=== PATIENT | male | born 2000 | race Caucasian/White ===

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

== ENCOUNTER 2024-07-14 11:38 | Inpatient (IN) ==
--- NOTE | 2024-07-14 12:16 | Emergency Department Note ---
History of Present Illness General Chief complaint: Abdominal Pain Stated complaint: APPENDIX HURTS, SOB, FEELS LIKE FEVER Time Seen by Provider: 07/14/24 11:47 History of Present Illness Maximum Pain Intensity: 6 Patient is a 24-year-old male with past medical history significant for anxiety and congenital solitary kidney, who presents to the emergency department for evaluation of abdominal pain. Symptoms woke him from sleep around 0500 this morning, roughly 7 hours ago. He states the pain was in the mid lower abdomen. He was nauseous, and did vomit once at that time. He tried have a bowel movement, reports that it was loose. He went back to bed. Woke up 2 hours later with the same pain. It continues to be in the lower abdomen, below the bellybutton but is now more on the right-hand side. Still nauseous, but has not vomited again and was able to tolerate pancakes for breakfast. He states the pain is worse with walking and moving. He currently rates his discomfort a 6/10. No urinary symptoms. Subjectively has had some hot flashes, but no documented fever. He did not take any medication for his symptoms. He is a client server programmer, but does not do any food prep or raw food handling activities. Denies any known sick contacts, denies any unusual food concerns. He did just finished a course of amoxicillin for strep throat a couple days ago. Home Medications Medication Instructions Recorded Confirmed Type inhalat.spacing dev,large mask #1 ea 11/20/18 07/02/24 Rx (Aerochamber Plus Flow-Vu,Large Mask) Allergies Allergy/AdvReac Type Severity Reaction Status Date / Time pollen extracts Allergy Mild Verified 07/14/24 14:50 Past Med/Surg History Problem List (Updated 07/14/24 @ 18:37 by Ava Arnett) Cyst of seminal vesicle (Acute) Acute appendicitis (Acute) Abdominal pain Medical History Polycystic kidney, autosomal recessive Anxiety Congenital absence of left kidney Syncope Surgical History History of circumcision Family History Mother No problems noted. Father Muscular dystrophy Social History Smoking Status: Current every day smoker Tobacco Type: E-cigarettes / Vaping Second Hand Exposure: No; Hx Alcohol Use: Yes Alcohol type: wine Hx Substance Use: Yes (Medical card) Last Used Substance: Days (ago) Preferred Language: Spanish Communication Ability: Effective Manager Sales Support Required: No Beliefs That Will Affect Care: None Current Living Situation: Parent Current Living Situation Comment: parents Feels Safe at Home: Yes Childhood Exposure to Second-Hand Smoke: No Dental Care, Regularly: Yes Assistive Devices: None Review of Systems A total of 10 systems reviewed and were otherwise negative Physical Exam Vital Signs Vital Signs - 24 hr 07/14/24 11:42 07/14/24 12:42 07/14/24 12:42 Temperature 36.7 C Temperature Source Temporal Artery Scan Pulse Rate 116 H 83 83 Respiratory Rate 18 17 Respiratory Effort / Characteristics Non-Labored Spontaneous Respiratory Depth Normal Respiratory Pattern Regular Blood Pressure 127/82 Blood Pressure Mean 97 Pulse Oximetry 99 Oxygen Delivery Method Room Air Sepsis Recent Fever Within 48 Hours No Sepsis New/Unexplained Change in Mental Status N/A Sepsis Action Taken by Nursing No Action Required 07/14/24 12:54 07/14/24 12:57 07/14/24 13:00 Temperature Temperature Source Pulse Rate 85 89 Respiratory Rate 14 19 Respiratory Effort / Characteristics Respiratory Depth Respiratory Pattern Blood Pressure 115/80 Blood Pressure Mean 87 Pulse Oximetry Oxygen Delivery Method Sepsis Recent Fever Within 48 Hours Sepsis New/Unexplained Change in Mental Status Sepsis Action Taken by Nursing 07/14/24 13:00 07/14/24 13:03 07/14/24 13:12 Temperature Temperature Source Pulse Rate 86 91 H Respiratory Rate 18 21 Respiratory Effort / Characteristics Respiratory Depth Respiratory Pattern Blood Pressure 115/80 Blood Pressure Mean 87 Pulse Oximetry Oxygen Delivery Method Sepsis Recent Fever Within 48 Hours Sepsis New/Unexplained Change in Mental Status Sepsis Action Taken by Nursing 07/14/24 13:27 07/14/24 13:30 07/14/24 13:30 Temperature Temperature Source Pulse Rate 89 Respiratory Rate 18 Respiratory Effort / Characteristics Respiratory Depth Respiratory Pattern Blood Pressure 106/76 106/76 Blood Pressure Mean 89 89 Pulse Oximetry Oxygen Delivery Method Sepsis Recent Fever Within 48 Hours Sepsis New/Unexplained Change in Mental Status Sepsis Action Taken by Nursing 07/14/24 14:06 07/14/24 14:18 07/14/24 14:30 Temperature Temperature Source Pulse Rate 83 76 84 Respiratory Rate 23 19 22 Respiratory Effort / Characteristics Respiratory Depth Respiratory Pattern Blood Pressure Blood Pressure Mean Pulse Oximetry Oxygen Delivery Method Sepsis Recent Fever Within 48 Hours Sepsis New/Unexplained Change in Mental Status Sepsis Action Taken by Nursing 07/14/24 14:51 Temperature Temperature Source Pulse Rate 86 Respiratory Rate 23 Respiratory Effort / Characteristics Respiratory Depth Respiratory Pattern Blood Pressure Blood Pressure Mean Pulse Oximetry Oxygen Delivery Method Sepsis Recent Fever Within 48 Hours Sepsis New/Unexplained Change in Mental Status Sepsis Action Taken by Nursing CONSTITUTIONAL: Well-appearing 24-year-old male in no acute distress. EYES: Pupils equal, round, reactive to light and accommodation. EOMs intact without nystagmus. Sclera are anicteric. ENT: Tympanic membranes intact, with normal landmarks. External canals are clear. Oral and nasopharynx are clear. Mucous membranes are moist, no lesions, tongue and gums appear normal. CARDIOVASCULAR: Regular rate and rhythm. Peripheral pulses easy to palpable. RESPIRATORY: Breath sounds equal and clear to auscultation. GI: Bowel sounds are present. Abdomen is soft, scaphoid, mildly tender to percussion over the right lower abdomen, and tender to palpation inferior to the umbilicus in the midline. There is no guarding or rebound. MUSCULOSKELETAL: Full range of motion of extremities x 4 with good strength. No cyanosis, edema, joint tenderness or swelling. No deformity. INTEGUMENTARY: No lesions or rash, normal skin turgor. Course Course Patient was seen and assessed as above. External medical records are reviewed. He presents to the emergency department for evaluation of lower abdominal discomfort, nausea and vomiting that started acutely this morning. IV lock was initiated. Laboratory studies were collected. He was treated with Zofran, Toradol and IV fluids. CBC with differential, CMP, lipase, urinalysis and stool studies were ordered. CT scan of the abdomen and pelvis with IV contrast was ordered. Diagnostics, as interpreted by me: Laboratory studies: Elevated white count at 19,500 with left shift. No anemia. No electrolyte imbalance, BUN 19, creatinine 0.88. No transaminitis. Lipase is normal. Imaging studies: CT scan of the abdomen pelvis with IV contrast concerning for acute appendicitis without perforation. Seminal vesicle cyst also noted, incidental finding, and not likely related to his current symptoms, but urology follow-up was advised. Patient reassessed. Laboratory and diagnostic imaging studies were reviewed with him. Given findings concerning for appendicitis, I did recommend consultation with general surgery. He was also made aware of the urologic findings, this can be done as an outpatient. Consultation placed with general surgery, patient reviewed with TALITA Merida. He will be admitted to the surgical service for evaluation, and IV antibiotics, possible surgical intervention. Differential diagnosis: Differential diagnoses entertained included UTI, pyelonephritis, kidney stone, hernia, appendicitis, infectious versus inflammatory colitis/enteritis, foodborne illness, inflammatory bowel disease, among others. Administered Medications Sodium Chloride (Nss) 1,000 mls @ 80 mls/hr IV .[id number] GAGAN Stop: 07/15/24 16:52 Last Admin: 07/14/24 17:28 Dose: 80 mls/hr Documented By: ISAIAH Discontinued Medications Sodium Chloride (Nss) 1,000 mls @ 999 mls/hr IV .[id number] GAGAN Stop: 07/14/24 13:10 Last Infusion: 07/14/24 13:42 Dose: Infused Documented By: Admin: 07/14/24 12:27 Dose: 999 mls/hr Documented By: GADIEL Piperacillin Sod/Tazobactam Sod (Zosyn) 4.5 gm in 100 mls @ 200 mls/hr IV NOW STA; Protocol Stop: 07/14/24 17:25 Last Infusion: 07/14/24 18:23 Dose: Infused Documented By: Admin: 07/14/24 17:28 Dose: 200 mls/hr Documented By: ISAIAH Ioversol (Optiray 320 100ml) 94 ml IV ONCE ONE Stop: 07/14/24 13:37 Last Admin: 07/14/24 13:36 Dose: 94 ml Documented By: NENO Ketorolac Tromethamine (Ketorolac Tromethamine 15 Mg/Ml Vial) 15 mg IV NOW STA Stop: 07/14/24 12:11 Last Admin: 07/14/24 12:27 Dose: 15 mg Documented By: GADIEL Ondansetron HCl (Ondansetron Inj 2 Mg/Ml 2 Ml Vial) 4 mg IV NOW STA Stop: 07/14/24 12:11 Last Admin: 07/14/24 12:27 Dose: 4 mg Documented By: GADIEL Medical Decision Making Differential Diagnosis See ED course. Medical Records Attestation: I reviewed the patient's medical records. Home Medications Current Medication List: was personally reviewed by me Laboratory Data Attestation: I reviewed the patient's lab results. 07/14/24 12:25 07/14/24 12:25 Lab Results 07/14/24 Range/Units 12:25 WBC 19.56 H (4.8-10.8) K/ul RBC 5.12 (4.70-6.10) M/uL Hgb 16.5 (14.0-18.0) g/dl Hct 46.1 (42.0-52.0) % MCV 90.0 (80.0-100.0) fL MCH 32.2 (25.0-34.0) pg MCHC 35.8 (32.0-36.0) g/dL RDW Std Deviation 38.0 (36.4-46.3) fL RDW Coeff of Kelby 11.5 (11.5-14.5) % Plt Count 233 (130-400) K/uL MPV 8.9 L (9.4-12.4) fL Immature Gran % (Auto) 0.4 % Neut % (Auto) 85.1 % Lymph % (Auto) 7.5 % Dickenson % (Auto) 6.7 % Eos % (Auto) 0.1 % Baso % (Auto) 0.2 % Neut # (Auto) 16.65 H (1.40-6.50) K/uL Lymph # (Auto) 1.47 (1.20-3.40) K/uL Dickenson # (Auto) 1.32 H (0.11-0.59) K/uL Eos # (Auto) 0.01 (0.00-0.50) K/uL Baso # (Auto) 0.03 (0.00-0.20) K/uL Immature Gran # (Auto) 0.08 (0.01-0.20) K/uL Sodium 137 (136-145) mmol/L Potassium 3.8 (3.5-5.1) mmol/L Chloride 102 (98-107) mmol/L Carbon Dioxide 27 (21-32) mmol/L Anion Gap 8 (3-11) BUN 19 (6-23) mg/dl Creatinine 0.88 (0.6-1.4) mg/dl Est Cr Clr Drug Dosing 113.6 ml/min eGFR 124.68 BUN/Creatinine Ratio 21.6 H (10-20) Glucose 77 (70-99(Fasting)) mg/dl Calcium 9.6 (8.6-10.3) mg/dl Total Bilirubin 1.1 H (0.2-1.0) mg/dl AST 16 (13-39) U/L ALT 15 (7-52) U/L Alkaline Phosphatase 82 (34-104) U/L Total Protein 7.8 (6.0-8.3) gm/dl Albumin 4.7 (3.4-5.0) gm/dl Globulin 3.1 (2.5-4.0) gm/dl Albumin/Globulin Ratio 1.5 (0.9-2) Lipase 22 (11-82) U/L Imaging Data Attestation: I personally reviewed and interpreted this imaging study as follows: Radiologist's Impression: Abdomen/Pelvis CT 07/14/24 12:09 CT SCAN OF THE ABDOMEN AND PELVIS WITH IV CONTRAST CLINICAL HISTORY: Right-sided abdominal pain, vomiting and diarrhea. COMPARISON STUDY: CT of the abdomen and pelvis September 12, 2021. TECHNIQUE: Following the IV administration of 94 cc of Optiray 320, CT scan of the abdomen and pelvis is performed from the lung bases to the proximal femora. Images are reviewed in the axial, sagittal, and coronal planes. IV contrast was administered without complication. A dose lowering technique was utilized adhering to the principles of ALARA. CT DOSE: 435.22 mGy.cm FINDINGS: Visualized lung bases are unremarkable. No pneumatosis, free air or portal venous gas is present. Liver, spleen, adrenal glands, right kidney and pancreas are unremarkable. There is no right hydronephrosis. The left kidney is congenitally absent. There is no evidence for a bowel obstruction. The caliber of the appendix is at the upper limits of normal, measuring 6 mm. The appendix is fluid-filled with mild appendiceal wall thickening and possible mild periappendiceal inflammation. The appendix is difficult to assess given a paucity of intra-abdominal fat. Note is made of an 8.4 x 4.6 cm cluster of cystic structures within the expected location of the seminal vesicles. The cystic foci were not evident on CT of September 12, 2021. IMPRESSION: 1. Findings equivocal for early acute appendicitis. Fluid-filled appendix which measures 6 mm in caliber with mild appendiceal wall thickening and possible periappendiceal inflammation. 2. Interval development of an 8.4 x 4.6 cm cluster of cystic structures within the expected location of the seminal vesicles since CT of September 12, 2021. 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 Nonemergent Urology consultation is recommended. 3. No bowel obstruction. ACT 112: Negative or not required by law. Electronically signed by: Russell Bullard M.D. 07/14/2024 2:14 PM MDM Narrative See ED course. Impression & Plan Acute appendicitis, Cyst of seminal vesicle Discharge Plan Visit Data Chief Complaint: Abdominal Pain Stated Complaint: APPENDIX HURTS, SOB, FEELS LIKE FEVER ED Provider: Jorden Buchanan ED Midlevel Provider: Ava Arnett Discharge Problem: Acute appendicitis, Cyst of seminal vesicle Patient Disposition: Admitted As Inpatient Discharge Instructions Interventions: ED Discharge Assessment Last Done: 07/14/24 16:09
[2024-07-14] MEDS: ONDANSETRON INJ 2 MG/ML 2 ML VIAL IV STA (12:27)
[2024-07-14] MEDS: SODIUM CHLORIDE 0.9% 1,000 ML IV SCH ×2 (12:27→17:28)
[2024-07-14] MEDS: KETOROLAC TROMETHAMINE 15 MG/ML VIAL IV STA (12:27)
[2024-07-14 12:46] LABS: Basophils # (auto) 0.03 K/uL (0.00-0.20); Basophils % (auto) 0.2 %; Eosinophils # (auto) 0.01 K/uL (0.00-0.50); Eosinophils % (auto) 0.1 %; Hematocrit (blood only) 46.1 % (42.0-52.0); Hemoglobin 16.5 g/dl (14.0-18.0); Immature Granulocytes # (auto) 0.08 K/uL (0.01-0.20); Immature Granulocytes % (auto) 0.4 %; Lymphocytes # (auto) 1.47 K/uL (1.20-3.40); Lymphocytes % (auto) 7.5 %; Mean Corpuscular Hemoglobin 32.2 pg (25.0-34.0); Mean Corpuscular Hgb Conc 35.8 g/dL (32.0-36.0); Mean Platelet Volume 8.9 fL (9.4-12.4); Monocytes # (auto) 1.32 K/uL (0.11-0.59); Monocytes % (auto) 6.7 %; Neutrophils # (auto) 16.65 K/uL (1.40-6.50); Neutrophils % (auto) 85.1 %; Platelet Count 233 K/uL (130-400); RDW Coefficient of Variation 11.5 % (11.5-14.5); Red Blood Count 5.12 M/uL (4.70-6.10); White Blood Count 19.56 K/ul (4.8-10.8)
[2024-07-14 13:03] LABS: Albumin Level 4.7 gm/dl (3.4-5.0); Bilirubin,Total 1.1 mg/dl (0.2-1.0); Calcium 9.6 mg/dl (8.6-10.3); Potassium 3.8 mmol/L (3.5-5.1)
[2024-07-14 13:09] LABS: Albumin Globulin Ratio 1.5 (0.9-2); BUN Creatinine Ratio 21.6 (10-20); Creatinine Clr Calc Pharmacy 113.6 ml/min; Globulin 3.1 gm/dl (2.5-4.0); Total Protein 7.8 gm/dl (6.0-8.3)
[2024-07-14] MEDS: OPTIRAY 320 100ml IV ONE (13:36)
--- NOTE | 2024-07-14 14:15 | CT Scan Report ---
CT SCAN OF THE ABDOMEN AND PELVIS WITH IV CONTRAST CLINICAL HISTORY: Right-sided abdominal pain, vomiting and diarrhea. COMPARISON STUDY: CT of the abdomen and pelvis September 12, 2021. TECHNIQUE: Following the IV administration of 94 cc of Optiray 320, CT scan of the abdomen and pelvi s is performed from the lung bases to the proximal femora. Images are reviewed in the axial, sagittal , and coronal planes. IV contrast was administered without complication. A dose lowering technique wa s utilized adhering to the principles of ALARA. CT DOSE: 435.22 mGy.cm FINDINGS: Visualized lung bases are unremarkable. No pneumatosis, free air or portal venous gas is pr esent. Liver, spleen, adrenal glands, right kidney and pancreas are unremarkable. There is no right h ydronephrosis. The left kidney is congenitally absent. There is no evidence for a bowel obstruction. The caliber of the appendix is at the upper limits of normal, measuring 6 mm. The appendix is fluid-f illed with mild appendiceal wall thickening and possible mild periappendiceal inflammation. The appen rubén is difficult to assess given a paucity of intra-abdominal fat. Note is made of an 8.4 x 4.6 cm cl uster of cystic structures within the expected location of the seminal vesicles. The cystic foci were not evident on CT of September 12, 2021. IMPRESSION: 1. Findings equivocal for early acute appendicitis. Fluid-filled appendix which measures 6 mm in sharon daphney with mild appendiceal wall thickening and possible periappendiceal inflammation. 2. Interval development of an 8.4 x 4.6 cm cluster of cystic structures within the expected location of the seminal vesicles since CT of September 12, 2021. 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 Nonemergent Urology consultation is recomme nded. 3. No bowel obstruction. ACT 112: Negative or not required by law. Electronically signed by: Russell Bullard M.D. 07/14/2024 2:14 PM
--- NOTE | 2024-07-14 14:43 | Surgery Consultation ---
Date of Consultation July 14, 2024 History of Present Illness History of Present Illness 24M presents to the ED with the c/o lower abdominal pain that migrated to the right lower quadrant. He explains the Allergies Allergy/AdvReac Type Severity Reaction Status Date / Time pollen extracts Allergy Mild Verified 07/02/24 15:11 Home Medications Medication Instructions Recorded Confirmed Type inhalat.spacing dev,large mask #1 ea 11/20/18 07/02/24 Rx (Aerochamber Plus Flow-Vu,Large Mask) albuterol sulfate 90 mcg/actuation 2 inh inhalation QID 30 min prior 05/16/21 07/02/24 Rx aerosol inhaler (Proventil HFA) to exercise #8.5 grams Patient History Medical History Polycystic kidney, autosomal recessive Anxiety Congenital absence of left kidney Syncope Surgical History History of circumcision Family History Mother No problems noted. 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 Current Living Situation: Family Current Living Situation Comment: parents Feels Safe at Home: Yes Childhood Exposure to Second-Hand Smoke: No Dental Care, Regularly: Yes Assistive Devices: Glasses Results & Data Vital Signs (Past 12 Hours) Vital Signs Temp Pulse Resp BP Pulse Ox O2 Del Method 07/14/24 13:30 106/76 07/14/24 13:30 106/76 07/14/24 13:27 89 18 07/14/24 13:12 91 H 21 07/14/24 13:03 86 18 07/14/24 13:00 115/80 07/14/24 13:00 115/80 07/14/24 12:57 89 19 07/14/24 12:54 85 14 07/14/24 12:42 83 17 07/14/24 12:42 83 07/14/24 11:42 36.7 C 116 H 18 127/82 99 Room Air PG Care Time/CCT Total # of Minutes Spent Total Time Spent with Patient: Total time spent is greater than 50% in coordination of care (as documented) at patient's floor/unit and/or counseling patient: Coding
--- NOTE | 2024-07-14 15:06 | History & Physical Report ---
<Statement entered by James Dickson, DO - 07/14/24 16:17> I have seen and examined this patient. He has decided to avoid surgery at this time and opted for abx only treatment of his suspected appendicitis. He will be admitted to start this treatment modality. Date of Service July 14, 2024 Assessment & Plan (1) Acute appendicitis: Plan: Patient with C/o abdominal pain, n/v that started at 0500 this AM. He reports that abdominal pain started at umbilicus and radiated to his RLQ. Currently rates pain a 2/10 after medication. VSS afebrile, WBC 19. On exam he is in NAD , abdomen soft , TTP RLQ. CT scan reading concerns for early acute appendicitis. This was explained to the patient in detail by Dr Dickson, and general surgery is recommended the patient have an appendectomy. The other option for treatment is admission to the hospital and give IV antibiotics, monitor CBC , and pain in hopes that he would avoid a surgical procedure this admission and have surgical intervention at a later date. The patient expressed that he is not ready to have surgery at this time and would like to be admitted and trial IV antibiotics. He states that he wants his significant other to be present if he were to under go surgery. The patient will be admitted to the surgical service , can have clear liquids up to MN then NPO, IV Fluids for hydration, IV antibiotics IV analgesic, IV antiemetic. Will monitor CBC and VSS , and reassess surgical intervention if patient status should change. Pt assessed with Dr Dickson and agreed with above. (2) Cyst of seminal vesicle: Plan: CT scan reading :"Interval development of an 8.4 x 4.6 cm cluster of cystic structures within the expected location of the seminal vesicles since CT of September 12, 2021. 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 Nonemergent Urology consultation is recommended." Will refer to the urology team as an outpatient as this is non emergent History of Present Illness Chief Complaint: abdominal pain Primary Care Provider: Oscar Calvert MD Patient is a pleasant 24 year old male with PMH anxiety, congenital absence of left kidney that presented to the [facility] ER with C/o abdominal pain, n/v that started at 0500 this AM. He reports that abdominal pain started at umbilicus and radiated to his RLQ. He has had nausea and vomiting and upon waking this AM he had some diarrhea. He attempted to go to work however pain became much worse. Currently he is rating his pain a 2/10 after pain medication. He denies fever/chills but did report feeling some "hot flashes". He denies prior abdominal surgery, but does have a hx of surgery as a child for an undescended testicle. Ct scan in ER showing concern for early acute appendicitis. Allergies Allergy/AdvReac Type Severity Reaction Status Date / Time pollen extracts Allergy Mild Verified 07/14/24 14:50 Home Medications Medication Instructions Recorded Confirmed Type inhalat.spacing dev,large mask #1 ea 11/20/18 07/02/24 Rx (Aerochamber Plus Flow-Vu,Large Mask) Past Med/Surg History Problem List (Updated 07/14/24 @ 15:47 by TALITA Merida) Cyst of seminal vesicle Acute appendicitis (Acute) Abdominal pain Medical History Polycystic kidney, autosomal recessive Anxiety Congenital absence of left kidney Syncope Surgical History History of circumcision Family History Mother No problems noted. Father Muscular dystrophy Social History Smoking Status: Current every day smoker Tobacco Type: E-cigarettes / Vaping Second Hand Exposure: No; Hx Alcohol Use: No Hx Substance Use: No Preferred Language: Polish Communication Ability: Effective Tripe Scraper Required: No Current Living Situation: Family Current Living Situation Comment: parents Feels Safe at Home: Yes Childhood Exposure to Second-Hand Smoke: No Dental Care, Regularly: Yes Assistive Devices: Glasses Review of Systems Constitutional: no fever and no chills Eyes: + corrective lenses Respiratory: no dyspnea Cardiovascular: no chest pain Gastrointestinal: + abdominal pain, + nausea and + vomitin g Musculoskeletal: no muscle weakness Psychiatric: no confusion Physical Exam Constitutional: cooperative and comfortable; no acute distress Respiratory: normal respiratory effort; no respiratory distress Cardiovascular: Rate/Rhythm: regular rate Gastrointestinal (Abdomen): Inspection/Auscultation: abdomen not distended Percussion/Palpation: + abdomen tender and abdomen soft Psychiatric: Orientation: alert and oriented x 3 Results & Data Results & Data Vital Signs (Past 12 Hours) Vital Signs Temp Pulse Resp BP Pulse Ox O2 Del Method 07/14/24 13:30 106/76 07/14/24 13:30 106/76 07/14/24 13:27 89 18 07/14/24 13:12 91 H 21 07/14/24 13:03 86 18 07/14/24 13:00 115/80 07/14/24 13:00 115/80 07/14/24 12:57 89 19 07/14/24 12:54 85 14 07/14/24 12:42 83 17 07/14/24 12:42 83 07/14/24 11:42 98.1 F 116 H 18 127/82 99 Room Air Diagnostic Findings CT SCAN OF THE ABDOMEN AND PELVIS WITH IV CONTRAST CLINICAL HISTORY: Right-sided abdominal pain, vomiting and diarrhea. COMPARISON STUDY: CT of the abdomen and pelvis September 12, 2021. TECHNIQUE: Following the IV administration of 94 cc of Optiray 320, CT scan of the abdomen and pelvis is performed from the lung bases to the proximal femora. Images are reviewed in the axial, sagittal, and coronal planes. IV contrast was administered without complication. A dose lowering technique was utilized adhering to the principles of ALARA. CT DOSE: 435.22 mGy.cm FINDINGS: Visualized lung bases are unremarkable. No pneumatosis, free air or portal venous gas is present. Liver, spleen, adrenal glands, right kidney and pancreas are unremarkable. There is no right hydronephrosis. The left kidney is congenitally absent. There is no evidence for a bowel obstruction. The caliber of the appendix is at the upper limits of normal, measuring 6 mm. The appendix is fluid-filled with mild appendiceal wall thickening and possible mild periappendiceal inflammation. The appendix is difficult to assess given a paucity of intra-abdominal fat. Note is made of an 8.4 x 4.6 cm cluster of cystic structures within the expected location of the seminal vesicles. The cystic foci were not evident on CT of September 12, 2021. IMPRESSION: 1. Findings equivocal for early acute appendicitis. Fluid-filled appendix which measures 6 mm in caliber with mild appendiceal wall thickening and possible periappendiceal inflammation. 2. Interval development of an 8.4 x 4.6 cm cluster of cystic structures within the expected location of the seminal vesicles since CT of September 12, 2021. 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 Nonemergent Urology consultation is recommended. 3. No bowel obstruction. ACT 112: Negative or not required by law. Electronically signed by: Russell Bullard M.D. 07/14/2024 2:14 PM CBC w Diff Results Results CBC w Diff Results: RBC 5.12 M/uL (4.70-6.10) 07/14/24 WBC 19.56 K/ul (4.8-10.8) H 07/14/24 Hgb 16.5 g/dl (14.0-18.0) 07/14/24 Hct 46.1 % (42.0-52.0) 07/14/24 MCV 90.0 fL (80.0-100.0) 07/14/24 MCH 32.2 pg (25.0-34.0) 07/14/24 MCHC 35.8 g/dL (32.0-36.0) 07/14/24 RDW Standard Deviation 38.0 fL (36.4-46.3) 07/14/24 RDW Coefficient of Variation 11.5 % (11.5-14.5) 07/14/24 Plt Count 233 K/uL (130-400) 07/14/24 MPV 8.9 fL (9.4-12.4) L 07/14/24 Neutrophils (%) (Auto) 85.1 % 07/14/24 Lymphocytes (%) (Auto) 7.5 % 07/14/24 Monocytes # (Auto) 1.32 K/uL (0.11-0.59) H 07/14/24 Eosinophils # (Auto) 0.01 K/uL (0.00-0.50) 07/14/24 Immature Granulocyte % (Auto) 0.4 % 07/14/24 Neutrophils # (Auto) 16.65 K/uL (1.40-6.50) H 07/14/24 Lymphocytes # (Auto) 1.47 K/uL (1.20-3.40) 07/14/24 Monocytes # (Auto) 1.32 K/uL (0.11-0.59) H 07/14/24 Eosinophils # (Auto) 0.01 K/uL (0.00-0.50) 07/14/24 Basophils # (Auto) 0.03 K/uL (0.00-0.20) 07/14/24 Immature Granulocyte # (Auto) 0.08 K/uL (0.01-0.20) 5 PG Care Time/CCT Total # of Minutes Spent Total Time Spent with Patient: Total time spent is greater than 50% in coordination of care (as documented) at patient's floor/unit and/or counseling patient: Coding Level of Care Code 06348 INT INP/OBS CARE 140MIN Diagnoses Acute appendicitis K35.80 Cyst of seminal vesicle N50.89
[2024-07-14] MEDS ORDERED: ACETAMINOPHEN 325 MG TAB PO PRN (16:53)
[2024-07-14] MEDS ORDERED: oxyCODONE HCL IR 5 MG TAB (IMMEDIATE RELEASE) PO PRN ×2 (16:53)
[2024-07-14] MEDS ORDERED: MoRPHine SULFATE 2 MG/ML CARP IV PRN ×2 (16:53)
[2024-07-14] MEDS: PIPERACILLIN/TAZOBACTAM 4.5 GM/100 ML BAG IV STA (17:28)
[2024-07-14] MEDS ORDERED: ONDANSETRON INJ 2 MG/ML 2 ML VIAL IV PRN (20:03)
[2024-07-14] MEDS: PIPERACILLIN/TAZOBACTAM 4.5 GM/100 ML BAG IV SCH (22:24)
[2024-07-15 07:29] LABS: BUN Creatinine Ratio 16.3 (10-20); Calcium 8.9 mg/dl (8.6-10.3); Creatinine Clr Calc Pharmacy 116.2 ml/min; Potassium 3.9 mmol/L (3.5-5.1)
--- NOTE | 2024-07-15 08:23 | Surgery Progress Note ---
Date of Service July 15, 2024 Assessment & Plan (1) Acute appendicitis: Plan: Patient presented to the ER yesterday with RLQ pain CT scan findings concerning for acute appendicitis with WBC 19 This AM labs are pending, no fevers documented Pain and tenderness improved since admission Initially patient opting for abx with interval appendectomy, but after taking the time to think it over he wants to proceed with surgery Will discuss with Dr. Dickson placing him on the schedule for today. Keep NPO with IV abx for now Admission and Anticipated Discharge Date Admission Date: July 14, 2024 Supervising Physician Co-Signing Physician Notes I have seen and examined this patient this am. He has decided he would like to move forward with laparoscopic appendectomy. The details of the procedure have been explained to him including the risks, benefits and alternatives. He expressed understanding and all of his questions were answered. Consent has been obtained. Subjective Patient reports feeling a bit better and the pain meds help his pain. He co ntinues with some intermittent nausea but its tolerable. Not passing much gas or BM. Reports he is willing to proceed with surgery after taking the time to think it over. [place] some sweats overnight. Physical Exam Physical Exam: awake/alert, no distress Respiratory: normal respiratory effort Gastrointestinal (Abdomen): Percussion/Palpation: + abdomen tender (mild ttp RLQ) and abdomen soft Results & Data Vital Signs (Past 12 Hours) Vital Signs Temp Pulse Resp BP Pulse Ox O2 Del Method 07/15/24 07:47 97.7 F 69 16 101/66 96 Room Air PG Care Time/CCT Total # of Minutes Spent Total Time Spent with Patient: Total time spent is greater than 50% in coordination of care (as documented) at patient's floor/unit and/or counseling patient: Coding Level of Care Code 19544 SUB INP/OBS CARE 04/18MIN Diagnoses Acute appendicitis K35.80
[2024-07-15 08:50] LABS: Basophils # (auto) 0.03 K/uL (0.00-0.20); Basophils % (auto) 0.3 %; Eosinophils % (auto) 1.1 %; Hematocrit (blood only) 42.6 % (42.0-52.0); Hemoglobin 14.6 g/dl (14.0-18.0); Immature Granulocytes # (auto) 0.02 K/uL (0.01-0.20); Immature Granulocytes % (auto) 0.2 %; Lymphocytes # (auto) 2.89 K/uL (1.20-3.40); Lymphocytes % (auto) 30.4 %; Mean Corpuscular Hgb Conc 34.3 g/dL (32.0-36.0); Mean Corpuscular Volume 90.4 fL (80.0-100.0); Mean Platelet Volume 9.2 fL (9.4-12.4); Monocytes % (auto) 8.4 %; Neutrophils # (auto) 5.68 K/uL (1.40-6.50); Neutrophils % (auto) 59.6 %; Platelet Count 202 K/uL (130-400); RDW Coefficient of Variation 11.7 % (11.5-14.5); RDW Standard Deviation 38.7 fL (36.4-46.3); Red Blood Count 4.71 M/uL (4.70-6.10); White Blood Count 9.52 K/ul (4.8-10.8)
[2024-07-15 09:35] LABS: Appearance Urine Clear (Clear); Bacteria Urine Automated None Seen (None Seen); Bilirubin Urine Negative (Negative); Blood Urine Negative (Negative); Cast Urine Automated 0-2 /lpf (0-2); Color Urine Yellow; Epithelial Cell Urine Auto 0-2 /hpf (0-2); Glucose Urine UA Negative (Negative); Ketones Urine 1+ (Negative); Leukocyte Esterase Urine 1+ (Negative); Nitrite Urine Negative (Negative); Protein Urine Negative (Negative); RBC Urine Automated 0-2 /hpf (0-2); Specific Gravity Urine 1.039 (1.000-1.030); Urobilinogen Urine Negative (Negative); WBC Urine Automated 21-50 /hpf (0-5); pH Urine 5.5 (4.5-7.5)
[2024-07-15] MEDS ORDERED: fentaNYL citrate PF 100 MCG/2 ML VIAL ONE ×2 (11:44→13:06)
[2024-07-15] MEDS ORDERED: ONDANSETRON INJ 2 MG/ML 2 ML VIAL ONE ×2 (11:46→13:06)
[2024-07-15] MEDS ORDERED: MIDAZOLAM HCL 1 MG/ML 2ML VIAL ONE ×2 (11:46→13:06)
[2024-07-15] MEDS ORDERED: PROPOFOL IV EMULSION 10 MG/ML 20 ML VIAL IV ONE ×2 (11:46→13:06)
[2024-07-15] MEDS ORDERED: SUGAMMADEX SODIUM 200 MG/2 ML VIAL IV ONE ×2 (11:46→14:21)
[2024-07-15] MEDS ORDERED: ROCURONIUM BROMIDE 10 MG/ML 5 ML VIAL IV ONE ×2 (11:46→13:06)
[2024-07-15] MEDS ORDERED: DEXAMETHASONE SOD INJ 4 MG/ML VIAL ONE ×2 (11:46→13:06)
[2024-07-15] MEDS ORDERED: KETAMINE HCL 10MG/ML SYR ONE (11:46)
[2024-07-15] MEDS: LACTATED RINGER'S 1,000 ML IV SCH (13:00)
[2024-07-15] MEDS ORDERED: LIDOCAINE 2% 2 ML VIAL/AMP(20MG/ML) INFIL ONE (13:06)
--- NOTE | 2024-07-15 14:12 | Anesthesiology Consultation ---
Date of Service July 15, 2024 Assessment & Plan Chart Review Chart Review: Acceptable Risk for Surgery and Patient NOT seen in Pre Admission Testing Consults Requested none ASA [id number] Proposed Anesthesia Anesthesia Type: General Risk / Benefits Reviewed With: PT / POA / Parent / Guardian, Accepts Plan and Informed Consent Obtained History Surgery Operation Date: 07/15/24 08:20 Proposed Procedures p Laparoscopic Appendectomy - James Dickson, Height/Weight Height: 5 ft 11 in Weight: 61 kg Allergies Allergy/AdvReac Type Severity Reaction Status Date / Time pollen extracts Allergy Mild Verified 07/14/24 14:50 Medications Home Medications Medication Instructions Recorded Confirmed Last Taken inhalat.spacing dev,large mask #1 ea 11/20/18 07/02/24 Unknown (Aerochamber Plus Flow-Vu,Large Mask) oxycodone 5 mg tablet 5 - 10 mg (1 - 2 x 5 mg) PO 07/15/24 Unknown .[id number] PRN pain, for initial therapy, max 6 tabs per day #15 tabs Active Medications Generic Name Dose Route Start Last Admin Trade Name Freq PRN Reason Stop Dose Admin Piperacillin Sod/Tazobactam Sod 4.5 gm in 100 mls @ 25 mls/hr 07/14/24 23:00 07/15/24 10:18 Zosyn IV 07/24/24 22:59 Infused Q8H GAGAN Infusion Protocol Sodium Chloride 1,000 mls @ 80 mls/hr 07/14/24 16:53 07/15/24 05:20 Nss IV 07/15/24 16:52 80 mls/hr .[id number] GAGAN Administration Lactated Ringer's 1,000 mls @ 15 mls/hr 07/15/24 13:00 07/15/24 13:00 Lr IV 07/16/24 12:59 15 mls/hr .Q24H GAGAN Administration NPO Date Last Intake of Fluids: 07/14/24 Time Last Intake of Fluids: 23:10 Date Last Intake of Solids: 07/14/24 Time Last Intake of Solids: 23:10 Past Medical History Medical History Polycystic kidney, autosomal recessive Anxiety Congenital absence of left kidney Syncope Exercise / Class Metabolic Activity II 4-5 Yardwork/Stairs/Walk up hill Past Family History Family History Mother No problems noted. Father Muscular dystrophy Past Surgical History Surgical History History of circumcision Past Anesthesia History No Hx of Anesthesia Complications and No Family Hx of Anesthesia Complications History of PONV No Hx of PONV and No Hx of Motion Sickness Social History Smoking Status: Current every day smoker tobacco type: e-cigarettes Do You Dip or Chew Tobacco: No Hx Alcohol Use: Yes Alcohol type: wine alcohol intake frequency: a few times a month Hx Substance Use: Yes (Medical card) substance use type: marijuana Last Used Substance: Days (ago) Review of Systems Gastrointestinal: + abdominal pain and + early satiety Physical Exam Vital Signs Last Vital Signs Temp 36.6 C 07/15/24 12:51 Pulse 70 07/15/24 12:51 Resp 18 07/15/24 12:51 BP 128/84 07/15/24 12:51 Pulse Ox 99 07/15/24 12:51 O2 Del Method Room Air 07/15/24 12:51 Constitutional no acute distress ENMT Mouth: no dentition abnormality Thyromental Distance: > or= 3.5 Finger Breadths Mallampati Class: II tongue ring Neck normal visual inspection Respiratory normal respiratory effort Cardiovascular Rate/Rhythm: regular rate and regular rhythm Musculoskeletal Extremities: extremities normal to inspection Neurologic moves all extremities Psychiatric Orientation: alert and oriented x 3 Testing Laboratory Results 07/15/24 06:32 07/15/24 06:32 Urine Color Yellow 07/15/24 09:12 Urine Appearance Clear (Clear) 07/15/24 09:12 Urine pH 5.5 (4.5-7.5) 07/15/24 09:12 Ur Specific [place] 1.039 (1.000-1.030) H 07/15/24 09:12 Urine Protein Negative (Negative) 07/15/24 09:12 Urine Glucose (UA) Negative (Negative) 07/15/24 09:12 Urine Ketones 1+ (Negative) H 07/15/24 09:12 Urine Nitrite Negative (Negative) 07/15/24 09:12 Ur Leukocyte Esterase 1+ (Negative) H 07/15/24 09:12 Urine WBC (Auto) 21-50 /hpf (0-5) H 07/15/24 09:12 Urine RBC (Auto) 0-2 /hpf (0-2) 07/15/24 09:12 U Hyaline Cast (Auto) 0-2 /lpf (0-2) 07/15/24 09:12 U Epithel Cells (Auto) 0-2 /hpf (0-2) 07/15/24 09:12 Urine Bacteria (Auto) None Seen (None Seen) 07/15/24 09:12
[2024-07-15] MEDS ORDERED: PROMETHAZINE HCL 6.25 MG in SODIUM CHLORIDE 0.9% 50 ML IV PRN (14:13)
[2024-07-15] MEDS ORDERED: fentaNYL citrate PF 100 MCG/2 ML VIAL IV PRN (14:13)
[2024-07-15] MEDS ORDERED: DEXAMETHASONE SOD INJ 4 MG/ML VIAL IV PRN (14:13)
[2024-07-15] MEDS ORDERED: ONDANSETRON INJ 2 MG/ML 2 ML VIAL IV PRN (14:13)
[2024-07-15] MEDS ORDERED: ATROPINE SULFATE 0.1 MG/ML 10ML SYR IV PRN (14:13)
[2024-07-15] MEDS ORDERED: KETOROLAC 30 MG/ML VIAL IV PRN (14:13)
[2024-07-15] MEDS ORDERED: ePHEDrine sulfate 50 MG/ML AMP IV PRN (14:13)
[2024-07-15] MEDS ORDERED: HYDROmorphone INJ 2 MG/ML SYR/VIAL IV PRN (14:13)
[2024-07-15] MEDS: BUPIVACAINE/EPINEPHRINE 0.5% MPF 1:200,000 30 ML VIAL ONE (14:22)
--- NOTE | 2024-07-15 14:58 | Operative Report ---
PG Post Operative Report Pre & Post Diagnosis Operation Date: 07/15/24 08:20 Pre-Op Diagnosis: APPENDICITIS Post-Op Diagnosis: APPENDICITIS I identified the patient and participated in the time-out.: Yes Procedure Operation Date: 07/15/24 08:20 Actual Procedures p Laparoscopic Appendectomy(Not Applicable) - James Dickson DO Surgeon James Dickson DO Drop Count Associate Teresa Elliott NP Estimated Blood Loss 1 Findings See Below Acute appendicitis, nonperforated, not gangrenous no abscess Specimens Appendix Drains None Anesthesia Type General Complications None Indications 24-year-old male presents to the ED with right lower quadrant pain and CT evidence for acute appendicitis. Description of Procedure The patient was brought back to the operating room placed on the operating table in supine position. He was connected to cardiac and oxygen monitoring, supplemental O2 was provided and SCDs were applied to bilateral lower extremities. The patient was administered general anesthesia and a secure airway was established. The abdomen was prepped and draped in typical sterile fashion and a timeout was conducted. Local anesthetic was used anesthetize the skin and subcutaneous tissues prior to making all incisions and all incisions were made with an 11 blade. The left lower quadrant incision was in the area of an elaborate tattoo and this incision was modified to accommodate the lines of the tattoo for minimal disruption of the tattoo markings. Intra-abdominal access was gained at the infraumbilical fold using a Veress needle at this location was confirmed with a saline drop test.. CO2 insufflation was initiated and pneumoperitoneum was established local pressure 15 mmHg. Once this pressure was reached, a 5 mm trocar was inserted using direct visualization with a 5 mm laparoscope and Optiview port. An additional 12 mm trocar was inserted left lower quadrant and a 5 mm trocar at the suprapubic midline. The OR table was positioned in Trendelenburg and left side down. The appendix was identified in its usual anatomical location in the right lower quadrant the base of the cecum. The appendix was very long and thickened. The mesoappendix was ligated and transected using the LigaSure energy device. The appendix was ligated and transected from the base of the cecum using a purple loaded 45 mm Endo JIMBO stapler. Excess discharged xavi were suctioned away. The area was inspected for hemostasis. There was no bleeding. There was no free fluid within the abdomen. The OR table was returned to the neutral position. The appendix was placed in an Endo Catch bag and removed from the left lower quadrant incision. The appendix was then placed in a labeled container and sent to pathology for further analysis. The instruments were removed, CO2 insufflation was discontinued and pneumoperitoneum was evacuated. The trocars were removed. The fascia at the left lower quadrant incision was approximated using 0 Vicryl suture. Additional local anesthetic was used at each incision site. Skin was approximated using 4-0 Vicryl suture. The abdomen was wiped clean with a saline soaked lap pad and dried. Dermabond was used to additionally seal the incisions. The patient was awakened from anesthesia, the secure airway was removed and and is transferred to recovery in stable condition. He tolerated the procedure well. I attest to the content of the Intraoperative Record and any orders documented therein. Any exceptions are noted below.
--- NOTE | 2024-07-15 15:43 | Anesthesiology Progress Note ---
Date of Service July 15, 2024 Anesthesia Post Procedure Vital Signs Vital Signs: Temp Pulse Pulse Resp BP BP Pulse Ox 07/15/24 15:30 75 18 112/71 98 07/15/24 15:20 36.4 C L 81 16 113/71 99 07/15/24 15:10 83 19 123/75 100 07/15/24 15:00 96 H 18 132/81 100 07/15/24 14:54 36 C L 99 H 19 125/73 99 07/15/24 12:51 36.6 C 70 18 128/84 99 07/15/24 07:47 36.5 C 69 16 101/66 96 07/14/24 19:31 36.6 C 73 16 108/70 99 07/14/24 17:35 36.8 C 73 16 99/62 L 99 07/14/24 16:03 79 17 07/14/24 16:00 114/74 07/14/24 16:00 114/74 O2 Del Method O2 Flow Rate 07/15/24 15:30 Room Air 07/15/24 15:20 Room Air 07/15/24 15:10 Oxymask 4 07/15/24 15:00 Oxymask 8 07/15/24 14:54 Oxymask 10 07/15/24 12:51 Room Air 07/15/24 07:47 Room Air 07/14/24 19:31 Room Air 07/14/24 17:35 07/14/24 16:03 07/14/24 16:00 07/14/24 16:00 Pain Intensity Right Flank: Pain Intensity: 8 Right Lower Abdomen: Pain Intensity: 2 Transfer of Care Handoff Completed per policy Notes Mental Status: alert / awake / arousable and participated in evaluation Patient Amnestic to Procedure: Yes Nausea / Vomiting: adequately controlled Pain: adequately controlled Airway Patency, RR, SpO2: stable & adequate BP & HR: stable & adequate Hydration State: stable & adequate Anesthetic Complications: no major complications apparent and Pt Satisfied with anesthetic care
[2024-07-15 17:51] VITALS: BP 113/74; PULSE 92; RESP 15; TEMP 98.2; O2SAT 97
--- NOTE | 2024-07-16 14:33 | Discharge Summary ---
Date of Service July 15, 2024 Admission HPI Per Admitting Provider Patient is a pleasant 24 year old male with PMH anxiety, congenital absence of left kidney that presented to the [facility] ER with C/o abdominal pain, n/v that started at 0500 this AM. He reports that abdominal pain started at umbilicus and radiated to his RLQ. He has had nausea and vomiting and upon waking this AM he had some diarrhea. He attempted to go to work however pain became much worse. Currently he is rating his pain a 2/10 after pain medication. He denies fever/chills but did report feeling some "hot flashes". He denies prior abdominal surgery, but does have a hx of surgery as a child for an undescended testicle. Ct scan in ER showing concern for early acute appendicitis. Principal Diagnosis acute appendicitis Discharge Exam awake/alert, no distress Respiratory normal respiratory effort Gastrointestinal (Abdomen) Inspection/Auscultation: + abdominal surgical incision (with dermabond) Percussion/Palpation: + abdomen tender (expected post op discomfort) and abdomen soft Discharge Data Allergies Allergy/AdvReac Type Severity Reaction Status Date / Time pollen extracts Allergy Mild Verified 07/14/24 14:50 Consultations 07/14/24 15:15 ED Decision to Admit Stat Procedures Performed Operation Date: 07/15/24 08:20 Actual Procedures p Laparoscopic Appendectomy(Not Applicable) - James Dickson, Ordered Studies 07/14/24 12:09 CT abd pelvis IV con only Stat Hospital Course (1) Acute appendicitis: This is a 24yM who presented to the [facility] ED on 07/14 with abdominal pain. Workup in the ED showed a WBC of [address] a/p concerning for acute appendicitis. The patient was tender to palpation in the RLQ. After discussing options with the patient he wanted to proceed with antibiotic management with interval appendectomy. The patient was admitted to the hospital, alloted clears, and started on IV abx. He was made NPO at midnight in the event his symptoms worsened or he changed his mind. On 07/15 the patients WBC normalized to 9 and he was afebrile. His pain was improved overall, but still present. Patient reports after taking the time to think things through he wished to proceed with surgical intervention this admission. The patient was booked for the OR and underwent a laparoscopic appendectomy with Dr. Dickson. He tolerated the procedure well, see op note for full details. Post operatively the patient's diet was advanced, pain managed on prn meds, and incisions clean/dry/intact. On POD#0 (07/15) the patient was deemed stable for discharge to home. Total Time Total Time Spent Total Time Spent (In Minutes): 15 Discharge Plan Discharge Items Patient Disposition: Home - Self-Care Reason For Visit: APPENDICITIS Discharge Diagnosis: laparoscopic appendectomy Activity: As commented below Lifting: No more than 10 pounds Bathing Comment: you can shower. No soaking in pools/bath for 2 weeks Exercise/Sports: Wait until after follow-up appointment Driving/Machine Use: no driving if taking narcotic pain medication Non-emergency contact: Surgeon Call non-emergency contact if: you have any medication questions, your pain is not controlled, you have a fever, your temperature is above 101.5, your wound has increased redness, your wound has increased drainage and your wound pain has increased Follow-up/Referrals: Oscar Calvert MD [Primary Care Provider] - James Dickson DO [Physician] - (call office for follow up in 1-2 weeks ) Diet: Regular Addtl Attending Provider Instructions: SPECIAL CARE INSTRUCTIONS: * Dressing: You have surgical glue called dermabond on your surgical site incisions. You may shower with this on. This will tend to come off within a couple of weeks. Do not pick at it. * You may shower tomorrow . NO soaking in pools or baths for 2 weeks * No lifting greater than 10lbs. No exercise until cleared by surgeon. Light walking is accepted. * No driving while taking narcotic pain medication * No drinking alcohol while taking narcotic pain medication * May use Ibuprofen/Tylenol over the counter for pain as tolerated. Do not exceed 3grams of Tylenol per 24 hours * Expect some swelling and bruising. * Diet- Please stay on a full liquid diet until you start passing gas from your bottom. Once you start passing gas you may start a low fiber diet to continue over the next couple of weeks. Call your doctor if: * Temperature above 101 degrees, nausea/vomiting, fever/chills * Pain not relieved by pain medicine ordered * There is increased drainage or redness from any incision * You have any unanswered questions or concerns [phone]. FOLLOW UP VISIT: If not already scheduled, please call the office for a follow-up visit. Office Please follow up with your primary care provider who may refer you to Urology as an outpatient given a finding on your CT scan as below "Interval development of an 8.4 x 4.6 cm cluster of cystic structures within the expected location of the seminal vesicles since CT of September 12, 2021. 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 Nonemergent Urology consultation is recommended." Pending Studies at Discharge: Yes Studies:: surgical pathology Stand-Alone Forms: [facility] [employer], Smoking Cessation Medications and DC Order Prescriptions: New oxycodone 5 mg tablet 5 - 10 mg PO .[id number] PRN (Reason: pain, for initial therapy, max 6 tabs per day) Qty: 15 0RF Continued (DME) Aerochamber Plus Flow-Vu,L Msk spacer See Dose Instructions .ROUTE .MEDSUPPLY Qty: 1 0RF Dose Instruction: As directed Rx Instructions: As directed Discharge Orders: Discharge Order (Routine); Ordered 07/15/24 Ordered By: Kennedi Hickman/Other Patient Handouts: Low-Fiber Diet Admission Data Admit Date/Time: 07/14/24 14:58 Attending Provider: James Dickson Admit Provider: James Dickson Primary Care Provider: Oscar Calvert Other Interventions: Discharge Summary Assessment (RN) Last Done: 07/15/24 18:00 Coding Level of Care Code 09091 IN/OBS DISCH 30 MIN/LESS Diagnoses Acute appendicitis K35.80
== END 2024-07-15 18:25 | disposition home or self-care (01) | DRG 398 ==
LOC: ED 11:38 → 3E 14:58